=== PATIENT | male | born 1975 | race Caucasian/White ===

== ENCOUNTER 2025-04-17 14:26 | Outpatient (CLI) | payer OTHER, SELFPAY | END 2025-04-17 14:27 | disposition home or self-care (01) | PROVIDERS: PCP Family Medicine; Visit Provider Family Medicine | DX: I10 Essential (primary) hypertension (principal); R42 Dizziness and giddiness; R53.83 Other fatigue; Z13.6 Encounter for screening for cardiovascular disorders | CPT/HCPCS: 80053; 80061; 84443 ==

== ENCOUNTER 2025-05-01 14:31 | Outpatient (CLI) | payer OTHER, SELFPAY ==
[2025-05-01 15:10] VITALS: BP 170/88; PULSE 103; RESP 18
--- NOTE | 2025-05-01 15:16 | W.PM.STED ---
Stress Test Note Date Date Seen: 05/01/25 Date of test: 05/01/25 Providers Primary care provider: Kayla Vega Stress test physician: Sofia Oneal Stress Test Note Stress test ordered: Stress Echo Indication for test: Episodes of nausea and dizziness with heavy exertion Stress test medicine: None Results discussion: Resting EKG: Sinus rhythm, 77 beats per minute. Resting blood pressure: 160/84 Stress test: Patient was consented on ordered stress test treadmill exercise stress echo and agreed to proceed. Standard Silviano protocol was followed. Patient was able to exercise to 12 minutes 21 seconds stopping due to meeting exercise capacity. This was equivalent to 12.7 Mets. Patient did reach a maximum heart rate of 168 beats per minute which was 115% of a calculated target heart rate of 145. He had a rate pressure product of 30,576. There was no arrhythmias, no EKG changes diagnostic of ischemia, patient had no symptoms. Patient is known to have hypertension and did withhold both of his lisinopril and metoprolol today. He did exhibit a hypertensive response. Echo images are pending to couple this for a full formal diagnostic. Impression: Subjectively negative, objectively negative EKG portion of this stress test. Hypertension Follow up suggested: Patient is discharged to home in stable condition. He will await results from his ordering physician. He will resume his antihypertensive medicines.
== END 2025-05-01 14:32 | disposition home or self-care (01) ==
PROVIDERS: PCP Family Medicine; Visit Provider Family Medicine
DX: R42 Dizziness and giddiness (principal)
CPT/HCPCS: 93016; 93325; 93351